=== PATIENT | male | born 1930 | race Caucasian/White ===

== ENCOUNTER 2018-11-04 08:38 | Inpatient (IN) | payer OTHER ==
[~2018-11-04] VITALS: Ht 167.6 cm; Wt 64.4 kg
--- NOTE | 2018-11-04 08:43 | NUR ---
SEEN AND EXAMINED BY DR. CONDE
--- NOTE | 2018-11-04 08:45 | NUR ---
PT [id number] FOR, FEVER AND SOB/ 02 DESATURATION, PT IS AAOX1, NOTED RESPIRATORY DISTRESS, HOOKED TO MONITOR, KEPT RESTED AND COMFORTABLE, WILL COTNINUE TO MONITOR.
[2018-11-04] MEDS ORDERED: ALBUTEROL FS 2.5 MG/3 ML VIAL.NEB ONE (08:48)
--- NOTE | 2018-11-04 08:50 | NUR ---
RT AT BEDSIDE FOR BREATHING TREATMENT.
[2018-11-04] MEDS ORDERED: PIPERACILLIN /TAZOBACTAM 3.375 G in IV D5W 50 ML IV ONE (09:00)
[2018-11-04] MEDS ORDERED: IV NS 0.9% 500 ML BAG IV ONE (09:00)
[2018-11-04] MEDS ORDERED: VANCOMYCIN 1 GM in IV D5W 250 ML IV ONE (09:00)
[2018-11-04] MEDS ORDERED: ALBUTEROL FS 2.5 MG/3 ML VIAL.NEB NEB ONE (09:00)
--- NOTE | 2018-11-04 09:00 | NUR ---
IV LINE ESTABLISHED, BLOOD DRAWNED AND SENT TO LAB.
[2018-11-04 09:03] LABS: BASOPHILS # (AUTO) 0.2 /CMM (0.0-0.2); BASOPHILS % (AUTO) 0.9 % (0.0-2.0); HEMATOCRIT 38 % (39-51); HEMOGLOBIN 12.4 g/dL (13.5-17.5); LYMPHOCYTES # (AUTO) 0.6 /CMM (0.8-4.8); LYMPHOCYTES % (AUTO) 2.3 % (20.0-44.0); MEAN CORPUSCULAR HGB CONC 33 g/dl (31.0-36.0); MEAN CORPUSCULAR VOLUME 87 fL (80-96); MONOCYTES # (AUTO) 1.1 /CMM (0.1-1.30); MONOCYTES % (AUTO) 4.6 % (2.0-12.0); NEUTROPHILS # (AUTO) 22.9 /CMM (1.8-8.9); NEUTROPHILS % (AUTO) 92.2 % (43.0-81.0); PLATELET COUNT (AUTO) 366 /CMM (150-450); RED BLOOD CELL COUNT(AUTO) 4.33 MIL/uL (4.5-6.0); WHITE BLOOD COUNT (AUTO) 24.8 K/uL (4.3-11.0)
[2018-11-04 09:10] LABS: CALCIUM, SERUM 9.3 mg/dL (8.5-10.1); CARBON DIOXIDE 27 mmol/L (21-32); CHLORIDE 98 mmol/L (98-107); CREATININE 1.9 mg/dL (0.6-1.3); GLUCOSE 155 mg/dL (74-106); POTASSIUM 4.4 mmol/L (3.5-5.1); SODIUM SERUM 140 mmol/L (136-145); UREA NITROGEN, BLOOD 40 mg/dL (7-18)
--- NOTE | 2018-11-04 09:12 | NUR ---
SHOW DOG TRAINER AT BEDSIDE FOR XRAY.
[2018-11-04 09:22] LABS: ALANINE AMINOTRANSFERASE 33 U/L (12-78); ALBUMIN 3.3 g/dL (3.4-5.0); ALKALINE PHOSPHATASE 235 U/L (46-116); ASPARTATE AMINOTRANSFERASE 34 U/L (15-37); B-TYPE NATRIURETIC PEPTIDE 257 PG/ML (0-125); BILIRUBIN,DIRECT 0.1 mg/dL (0.0-0.2); BILIRUBIN,TOTAL 0.6 mg/dL (0.2-1.0); TOTAL PROTEIN, SERUM 8.4 g/dL (6.4-8.2)
[2018-11-04] MEDS ORDERED: IV NS 0.9% 1,000 ML BAG IV ONE (09:30)
[2018-11-04] MEDS ORDERED: ACETAMINOPHEN 650 MG/SUPP.RECT RC ONE ×2 (09:30→09:36)
[2018-11-04 09:37] LABS: APPEARANCE,URINE Cloudy (CLEAR); BILIRUBIN,URINE Negative (NEGATIVE); BLOOD, URINE Negative Ery/uL (NEGATIVE); COLOR,URINE Yellow (YELLOW); KETONES,URINE Negative (NEGATIVE); LEUKOCYTE ESTERASE ,URINE Negative (NEGATIVE); NITRITE, URINE Negative (NEGATIVE); PROTEIN,URINE 100 mg/dl (NEGATIVE); UGLUCOSE Negative (NEGATIVE); UROBILINOGEN,URINE 0.2 EU/dL (0.2)
[2018-11-04 09:47] LABS: BACTERIA,URINE Rare /HPF (None Seen); RBC,URINE 0-2 /HPF (0-2); SQUAMOUS EPITHELIAL CELL,UR Few /HPF (None Seen); URINE AMORPHOUS URATE Moderate /HPF (None Seen)
--- NOTE | 2018-11-04 09:56 | NUR ---
PT IS WHEELED TO CT SCAN VIA [facility].
--- NOTE | 2018-11-04 10:05 | NUR ---
RAPID INFULENZA OBTAINED AND SENT TO LAB.
--- NOTE | 2018-11-04 10:55 | NUR ---
PANEL ON-CALL PAGED
[2018-11-04] MEDS ORDERED: MINERAL OIL 133 ML (PYXIS) 1 EA ENEMA RC ONE ×2 (11:00→11:01)
--- NOTE | 2018-11-04 11:10 | NUR ---
CALLED [facility] ITS LUIS
[2018-11-04] MEDS ORDERED: MEMA10TA GT (11:11)
[2018-11-04] MEDS ORDERED: ATOR40TA GT (11:11)
[2018-11-04] MEDS ORDERED: DONE5TAB7 GT (11:11)
[2018-11-04] MEDS ORDERED: ACET-73 PO (11:11)
[2018-11-04] MEDS ORDERED: NA P133E RC (11:11)
[2018-11-04] MEDS ORDERED: BISA10SU61 RC (11:11)
[2018-11-04] MEDS ORDERED: LEVE500T9 GT (11:11)
[2018-11-04] MEDS ORDERED: MAGN400O6 GT (11:11)
[2018-11-04] MEDS ORDERED: HYDR-4077 GT (11:11)
[2018-11-04] MEDS ORDERED: LACT-96 GT (11:11)
[2018-11-04] MEDS ORDERED: TYL2T GT (11:11)
[2018-11-04] MEDS ORDERED: FINA5TAB3 GT (11:11)
[2018-11-04 12:00] VITALS: BP 118/66
--- NOTE | 2018-11-04 12:00 | NUR ---
REPORT GIVEN TO BHASKAR HARDIN FOR CJ.
[2018-11-04 13:00] VITALS: BP 118/83
[2018-11-04] MEDS ORDERED: Z GUARD REMEDY 2 OZ OINT TP PRN (14:00)
[2018-11-04] MEDS ORDERED: ONDANSETRON HCL/PF 4 MG/2 ML VIAL IVP PRN (14:00)
[2018-11-04] MEDS ORDERED: MAGNESIUM HYDROXIDE 30 ML UDC PO PRN (14:00)
[2018-11-04] MEDS ORDERED: NA PHOS,M-B/NA PHOS,DI-BA 1 EA ENEMA RC PRN (14:00)
[2018-11-04] MEDS ORDERED: BISACODYL SUPP (10 MG) 10 MG/SUPP.RECT SUPP.RECT RC PRN (14:00)
[2018-11-04] MEDS ORDERED: MAG HYDROX/AL HYDROX/SIMETH 30 ML UDC PO PRN (14:00)
[2018-11-04] MEDS ORDERED: ACETAMINOPHEN 325 MG TABLET PO PRN (14:00)
[2018-11-04] MEDS ORDERED: ACETAMINOPHEN 650 MG/SUPP.RECT RC PRN (14:00)
[2018-11-04] MEDS ORDERED: FEE PK DOSING 1 MIN EA MC ONE (14:19)
[2018-11-04] MEDS ORDERED: VANCOMYCIN 0.75 GM in IV D5W 250 ML IV SCH (15:00)
[2018-11-04] MEDS ORDERED: JEVITY 1.2 CAL 1,000 ML BOTTLE GT PRN (15:00)
--- NOTE | 2018-11-04 15:00 | NUR ---
RN NOTE GI FACILITIES MAINTENANCE MANAGER CALLED ER TO OBTAIN AMOUNT OF BOWEL MOVEMENT AFTER ENEMA WAS GIVEN. RESIDENCY DIRECTOR CONFIRMED X2 SMALL LYNDON COLORED STOOLS ABOUT THE SIZE OF A FIST WAS EXPELLED. RN IN MORE CHANGED PATIENT, HAD X1 BOWEL MOVEMENT ABOUT 100CC SMALL LYNDON COLORED SOFT. NO RESIDUAL NOTED. G TUBE FLUSHING WELL. OK TO START TUBE FEEDING AND RN WILL START THIS PM.
[2018-11-04] MEDS: IV NS 0.9% 1,000 ML IV PRN (15:06)
--- NOTE | 2018-11-04 15:27 | NUR ---
RN GI ASSESSMENT EXTRA LARGE BOWEL MOVEMENT X2 APPROX 200CC OR 2 LARGE FISTS, BROWN SOFT BUT NOT LOOSE.
[2018-11-04 16:00] VITALS: BP 105/72
--- NOTE | 2018-11-04 16:00 | NUR ---
RN NOTE PATIENT TRANSFERED FROM ER TODAY, LEFT UPPER CHEST RAISED AREA, IS NOT OPEN WOUND. MD AWARE, ER NURSE ENDORSE MD AWARE. NO NEW ORDERS, ATB THERAPY ENDORSE TO NIGHT NURSE.
[2018-11-04 17:00] VITALS: BP 120/78
[2018-11-04] MEDS: ZOSYN IVPB 2.25 G in IV D5W 50ml IV SCH ×2 (17:00→21:24)
[2018-11-04] MEDS: MEMANTINE HCL 5 MG TABLET GT SCH (17:15)
--- NOTE | 2018-11-04 18:38 | NUR ---
RN CLOSING NOTE PATIENT IN BED CONFUSED, IV PATENT AND INTACT, BED IN LOW POSITION. PATIENT HAD MULTIPLE BOWEL MOVEMENTS TODAY KEPT CLEAN AND DRY. ABDOMEN IS NON DISTENDED AND SOFT. CALLED KITCHEN X2 TO REQUEST JEVITY 1.2 FEEDING WITH NO RESOLVE. WILL ENDORSE TO DEPUTY DIRECTOR. IV ATB ADMINISTERD GTUBE FLUSHING WELL.
[2018-11-04] MEDS: JEVITY 1.2 CAL 1,000 ML BOTTLE GT PRN (19:21)
--- NOTE | 2018-11-04 20:51 | NUR ---
RN MORE INITIAL NOTE RECEIVED PT IN BED AWAKE, CONFUSED, BB, RA WELL TOLERATED, LAC#18G, NS@75ML/HR RUNNING WELL TOLERATED, GT FEEDING JEVITY 1.2@30CC/HR GOAL 50ML/HR, WILL ADVANCE TOLERATED, HOB ELEVATED FOR ASPIRATION PRECAUTION,SAFETY MEASURES IN PLACE, CLEAN AND DRY, WILL CONT' TO MONITOR.
[2018-11-04 21:00] VITALS: BP 109/51
[2018-11-04] MEDS: LEVETIRACETAM SOL (5 ML) 100 MG/ML UDC GT SCH (21:12)
[2018-11-04] MEDS: DONEPEZIL 5 MG TABLET GT SCH (21:12)
[2018-11-04] MEDS: ATORVASTATIN 40 MG TABLET GT SCH (21:12)
[2018-11-05 01:00] VITALS: BP 117/72
[2018-11-05 04:00] VITALS: BP 119/67
[2018-11-05] MEDS: ZOSYN IVPB 2.25 G in IV D5W 50ml IV SCH ×4 (04:37→21:46)
[2018-11-05 05:00] VITALS: BP 119/67
[2018-11-05 06:29] LABS: BASOPHILS # (AUTO) 0.1 /CMM (0.0-0.2); BASOPHILS % (AUTO) 0.4 % (0.0-2.0); EOSINOPHILS % (AUTO) 2.2 % (0.0-6.0); HEMATOCRIT 29 % (39-51); HEMOGLOBIN 9.5 g/dL (13.5-17.5); LYMPHOCYTES # (AUTO) 1.4 /CMM (0.8-4.8); LYMPHOCYTES % (AUTO) 6.9 % (20.0-44.0); MEAN CORPUSCULAR HGB CONC 33 g/dl (31.0-36.0); MEAN CORPUSCULAR VOLUME 86 fL (80-96); MONOCYTES # (AUTO) 1.2 /CMM (0.1-1.30); MONOCYTES % (AUTO) 5.8 % (2.0-12.0); NEUTROPHILS # (AUTO) 17.1 /CMM (1.8-8.9); NEUTROPHILS % (AUTO) 84.7 % (43.0-81.0); PLATELET COUNT (AUTO) 252 /CMM (150-450); RED BLOOD CELL COUNT(AUTO) 3.34 MIL/uL (4.5-6.0); WHITE BLOOD COUNT (AUTO) 20.2 K/uL (4.3-11.0)
[2018-11-05 06:54] LABS: ALANINE AMINOTRANSFERASE 23 U/L (12-78); ALBUMIN 2.5 g/dL (3.4-5.0); ALKALINE PHOSPHATASE 142 U/L (46-116); ASPARTATE AMINOTRANSFERASE 28 U/L (15-37); BILIRUBIN,TOTAL 0.6 mg/dL (0.2-1.0); CARBON DIOXIDE 29 mmol/L (21-32); CHLORIDE 103 mmol/L (98-107); CREATININE 1.4 mg/dL (0.6-1.3); GLUCOSE 103 mg/dL (74-106); MAGNESIUM 1.9 mg/dL (1.8-2.4); PHOSPHORUS 1.9 mg/dL (2.5-4.9); POTASSIUM 3.2 mmol/L (3.5-5.1); SODIUM SERUM 140 mmol/L (136-145); TOTAL PROTEIN, SERUM 6.4 g/dL (6.4-8.2); UREA NITROGEN, BLOOD 37 mg/dL (7-18)
--- NOTE | 2018-11-05 06:55 | NUR ---
RN MORE CLOSING NOTE ENDORSED PT IN BED AWAKE, CONFUSED, BB, RA WELL TOLERATED, LAC#18G, NS@75ML/HR RUNNING WELL TOLERATED, GT FEEDING JEVITY 1.2@30CC/HR GOAL 50ML/HR, WILL ADVANCE TOLERATED, HOB ELEVATED FOR ASPIRATION PRECAUTION,SAFETY MEASURES IN PLACE, CLEAN AND DRY, WILL CONT' TO MONITOR.
[2018-11-05 06:59] LABS: CHOLESTEROL 66 mg/dL (<200); HDL CHOLESTEROL 35 mg/dL (40-60); LDL 27 mg/dL (0-99); THYROID STIMULATING HORMONE 3.821 uIU/mL (0.358-3.74); TRIGLYCERIDES 64 mg/dL (30-150)
--- NOTE | 2018-11-05 07:40 | NUR ---
RN INITIAL NOTE RECEIVED REPORT AT BEDSIDE. PT IN BED, CONFUSED, BB, AROUSAL TO TACTILE STIMULI. RA WELL TOLERATED SATURATING 99%. SR. LAC#18G, NS@75ML/HR RUNNING. GT FEEDING JEVITY 1.2@30CC/HR. HOB ELEVATED FOR ASPIRATION PRECAUTION,SAFETY MEASURES IN PLACE, BED AT LOWEST AND LOCKED POSITION, BED ALARM ON. CALL LIGHT WITHIN REACH. WILL CONTINUE TO MONITOR CLOSELY.
[2018-11-05 08:00] VITALS: BP 112/52
[2018-11-05] MEDS: FINASTERIDE (5 MG) 5 MG TABLET GT SCH (09:11)
[2018-11-05] MEDS: LEVETIRACETAM SOL (5 ML) 100 MG/ML UDC GT SCH ×2 (09:12→21:46)
[2018-11-05] MEDS: hydrALAZINE HCL 50 MG TABLET GT SCH (09:12)
[2018-11-05] MEDS: MEMANTINE HCL 5 MG TABLET GT SCH ×2 (09:16→16:21)
[2018-11-05] MEDS: IV NS 0.9% 1,000 ML IV PRN (09:39)
[2018-11-05] MEDS ORDERED: VANCOMYCIN 0.75 GM in IV D5W 250 ML IV SCH (10:00)
[2018-11-05] MEDS: POTASSIUM CHLORIDE 20 MEQ POWDER PACKET GT SCH ×2 (12:12→12:58)
--- NOTE | 2018-11-05 15:11 | NUR ---
RN NOTE AN SMITH AT BEDSIDE, AWARE ABOUT THE PATIENT'S RIGHT UPPER CHEST WALL CYST/BULGING. AWARE THAT PT HAD 1 BM, FORMED AND GREEN STOOL. PER LUIS, HE WILL ORDER ABD XR, REPEAT LACTIC ACID, TSH AND STOOL OB SINCE PATIENT'S HGB DROPPED FROM 12.4 TO 9.5.
[2018-11-05] MEDS ORDERED: NEUTRA PHOS 1 POWD.PACKET GT ONE (15:30)
[2018-11-05 16:00] VITALS: BP 125/55
[2018-11-05] MEDS: LACTOBACILLUS RHAMNOSUS GG 1 EACH CAP.SPRINK PEG SCH (16:21)
--- NOTE | 2018-11-05 18:59 | NUR ---
RN CLOSING NOTES PATIENT IN BED ASLEEP, BUT EASILY AROUSABLE. VERY CONFUSED. PT EVAL DONE TODAY, PATIENT IS BB. ON ROOM AIR. HAD 1 BM. TOOK PICTURES OF BLE ABRASIONS, IN CHART. WOUND CONSULT ORDERED. JEVITY AT 40ML/HR. GOAL IS 50. NS RUNNING AT 75ML/HR. K REPLACED AND PHOS. STOOL OB PENDING. WILL ENDORSE TO NOC SHIFT FOR CJ
--- NOTE | 2018-11-05 19:53 | NUR ---
RN OPENING NOTES RECEIVED REPORT FROM DANAY MURO. PATIENT A/A/O X1 TO NAME W/ CONFUSION. BREATHING EVEN & UNLABORED, TOLERATING ROOM AIR. NO S/S OF RESPIRATORY DISTRESS. RADIAL PULSES PRESENT. RIGHT AC OV #18 INTACT & PATENT W/ DRESSING CDI & IVF NS INFUSING WELL @ 75 ML/HR. G-TUBE IN PLACE & FLUSHING WELL W/ GTF JEVITY RUNNING @ 40 ML/HR. NO RESIDUAL NOTED @ THIS TIME. NO S/S OF PAIN OR DISCOMFORT @ THIS TIME. SAFETY MEASURES IN PLACE W/ SIDE RAILS UP & BED ALARM ON. HOB ELEVATED FOR ASPIRATION PRECAUTIONS. WILL CONTINUE TO MONITOR.
[2018-11-05 20:00] VITALS: BP 126/45
[2018-11-05] MEDS: ATORVASTATIN 40 MG TABLET GT SCH (21:45)
[2018-11-05] MEDS: DONEPEZIL 5 MG TABLET GT SCH (21:45)
[2018-11-06 04:00] VITALS: BP 117/63
[2018-11-06] MEDS: JEVITY 1.2 CAL 1,000 ML BOTTLE GT PRN (04:04)
[2018-11-06] MEDS: IV NS 0.9% 1,000 ML IV PRN ×2 (04:04→22:34)
[2018-11-06] MEDS: ZOSYN IVPB 2.25 G in IV D5W 50ml IV SCH ×3 (04:12→15:35)
[2018-11-06] MEDS: VANCOMYCIN 0.75 GM in IV D5W 250 ML IV SCH ×2 (05:43→22:35)
[2018-11-06 07:19] LABS: BASOPHILS % (AUTO) 0.4 % (0.0-2.0); EOSINOPHILS % (AUTO) 6.6 % (0.0-6.0); HEMATOCRIT 27 % (39-51); HEMOGLOBIN 9.2 g/dL (13.5-17.5); LYMPHOCYTES # (AUTO) 1.3 /CMM (0.8-4.8); LYMPHOCYTES % (AUTO) 11.1 % (20.0-44.0); MEAN CORPUSCULAR HGB CONC 34 g/dl (31.0-36.0); MEAN CORPUSCULAR VOLUME 85 fL (80-96); MONOCYTES # (AUTO) 0.8 /CMM (0.1-1.30); MONOCYTES % (AUTO) 6.5 % (2.0-12.0); NEUTROPHILS # (AUTO) 8.9 /CMM (1.8-8.9); NEUTROPHILS % (AUTO) 75.4 % (43.0-81.0); PLATELET COUNT (AUTO) 227 /CMM (150-450); RED BLOOD CELL COUNT(AUTO) 3.16 MIL/uL (4.5-6.0); WHITE BLOOD COUNT (AUTO) 11.8 K/uL (4.3-11.0)
--- NOTE | 2018-11-06 07:20 | NUR ---
RN INITIAL NOTES PATIENT IN BED, ASLEEP BUT EASILY AROUSABLE TO TOUCH. PATIENT VERY CONFUSED, WHEN ASKED IF HIS NAME IS FELTON, PATIENT YELLED NO. ON ROOM AIR, SATING WELL. HAS A RAC #18 WITH NS AT 75ML/HR. ON GTF JEVITY AT 40 ML/HR. GOAL IS 50. OB STOOL COLLECTED PER NOC SHIFT RN. NO COMPLAINS OF ANY PAIN NOR SOB. BED LOCKED AND IN LOWEST POSITION. CALL LIGHT WITHIN REACH. WILL CONT TO MONITOR
[2018-11-06 07:31] LABS: OCCULT BLOOD STOOL NEGATIVE (NEGATIVE)
[2018-11-06 07:50] LABS: ALANINE AMINOTRANSFERASE 25 U/L (12-78); ALBUMIN 2.3 g/dL (3.4-5.0); ALKALINE PHOSPHATASE 137 U/L (46-116); ASPARTATE AMINOTRANSFERASE 30 U/L (15-37); BILIRUBIN,TOTAL 0.6 mg/dL (0.2-1.0); CALCIUM, SERUM 7.8 mg/dL (8.5-10.1); CARBON DIOXIDE 22 mmol/L (21-32); CHLORIDE 104 mmol/L (98-107); CREATININE 1.2 mg/dL (0.6-1.3); GLUCOSE 144 mg/dL (74-106); MAGNESIUM 1.8 mg/dL (1.8-2.4); PHOSPHORUS 1.7 mg/dL (2.5-4.9); POTASSIUM 3.3 mmol/L (3.5-5.1); SODIUM SERUM 137 mmol/L (136-145); UREA NITROGEN, BLOOD 27 mg/dL (7-18)
[2018-11-06 08:00] VITALS: BP 128/62
[2018-11-06] MEDS: LACTOBACILLUS RHAMNOSUS GG 1 EACH CAP.SPRINK PEG SCH ×2 (08:12→16:09)
[2018-11-06] MEDS: MEMANTINE HCL 5 MG TABLET GT SCH ×2 (08:12→16:08)
[2018-11-06] MEDS: FINASTERIDE (5 MG) 5 MG TABLET GT SCH (08:12)
[2018-11-06] MEDS: LEVETIRACETAM SOL (5 ML) 100 MG/ML UDC GT SCH ×2 (08:12→22:35)
[2018-11-06] MEDS: hydrALAZINE HCL 50 MG TABLET GT SCH (08:12)
[2018-11-06] MEDS ORDERED: POTASSIUM CHLORIDE 20 MEQ TAB.PRT.SR PO SCH (11:00)
--- NOTE | 2018-11-06 13:04 | NUR ---
RN NOTES MISSED A DOSE OF K DUR 20 MEQ. REORDERED MEDICATION AGAIN
[2018-11-06] MEDS ORDERED: POTASSIUM CHLORIDE 20 MEQ TAB.PRT.SR PO ONE (13:30)
[2018-11-06] MEDS ORDERED: NEUTRA PHOS 1 POWD.PACKET NG ONE (15:30)
[2018-11-06 16:00] VITALS: BP 148/77
--- NOTE | 2018-11-06 16:00 | NUR ---
RN NOTES PATIENT COUGHING AND WHEEZING. CALLED RT FOR PRN BREATHING TX
[2018-11-06] MEDS: ALBUTEROL FS 2.5 MG/3 ML VIAL.NEB NEB PRN (16:06)
[2018-11-06] MEDS: IPRATROPIUM NEB FS 0.5 MG/2.5 ML AMPUL.NEB NEB PRN (16:06)
--- NOTE | 2018-11-06 16:34 | NUR ---
RN NOTE RECHECKED PATIENT'S BP, WAS 170/76. NEW BP 148/77.
--- NOTE | 2018-11-06 18:38 | NUR ---
RN CLOSING NOTES PATIENT IN BED, AWAKE AND VERY CONFUSED. ON 2L NC. PATIENT RECEIVED BREATHING TX DUE TO WHEEZING AND SOB. HAS 2 BM, NEGATIVE FOR OB. JEVITY AT 50ML/HR. K AND PHOS REPLACED. ON IVF 75ML/HR ON RIGHT AC#18. BED LOCKED AND IN LOWEST POSITION. CALL LIGHT WITHIN REACH. WILL ENDORSE TO NOC SHIFT FOR CJ
[2018-11-06] MEDS: ATORVASTATIN 40 MG TABLET GT SCH (22:35)
[2018-11-06] MEDS: DONEPEZIL 5 MG TABLET GT SCH (22:35)
[2018-11-07] MEDS: ZOSYN IVPB 2.25 G in IV D5W 50ml IV SCH ×5 (00:09→22:13)
[2018-11-07 00:48] VITALS: BP 132/64
--- NOTE | 2018-11-07 02:28 | NUR ---
Patient IV Fluid TKO due patient episode of wheezing. Will continue to monitor.
[2018-11-07 04:00] VITALS: BP 135/60
--- NOTE | 2018-11-07 07:15 | NUR ---
RN OPENING NOTES PATIENT IN BED, ASLEEP BUT EASILY AROUSABLE TO TOUCH. A/OX1, CONFUSED. ON ROOM AIR, SATING WELL. IV ACCESS INTACT AND PATENT. ON GTF JEVITY AT 40ML/HR, GOAL IS 50. NOT IN ANY FORM OF DISTRESS, NO SOB, NO S/S OF PAIN OR DISCOMFORT. KEPT PATIENT SAFE AND COMFORTABLE. BED IN LOCKED/LOWEST POSITION. CALL LIGHT WITHIN REACH. WILL CONT TO MONITOR ACCORDINGLY
[2018-11-07 07:32] LABS: BASOPHILS % (AUTO) 0.5 % (0.0-2.0); EOSINOPHILS % (AUTO) 5.1 % (0.0-6.0); HEMATOCRIT 29 % (39-51); HEMOGLOBIN 9.9 g/dL (13.5-17.5); LYMPHOCYTES # (AUTO) 1.2 /CMM (0.8-4.8); LYMPHOCYTES % (AUTO) 12.7 % (20.0-44.0); MEAN CORPUSCULAR HGB CONC 34 g/dl (31.0-36.0); MEAN CORPUSCULAR VOLUME 85 fL (80-96); MONOCYTES # (AUTO) 0.8 /CMM (0.1-1.30); MONOCYTES % (AUTO) 8.3 % (2.0-12.0); NEUTROPHILS # (AUTO) 6.8 /CMM (1.8-8.9); NEUTROPHILS % (AUTO) 73.4 % (43.0-81.0); PLATELET COUNT (AUTO) 249 /CMM (150-450); RED BLOOD CELL COUNT(AUTO) 3.39 MIL/uL (4.5-6.0); WHITE BLOOD COUNT (AUTO) 9.3 K/uL (4.3-11.0)
[2018-11-07 07:38] LABS: ALANINE AMINOTRANSFERASE 28 U/L (12-78); ALBUMIN 2.4 g/dL (3.4-5.0); ALKALINE PHOSPHATASE 137 U/L (46-116); ASPARTATE AMINOTRANSFERASE 29 U/L (15-37); BILIRUBIN,TOTAL 0.5 mg/dL (0.2-1.0); CHLORIDE 104 mmol/L (98-107); CREATININE 1.1 mg/dL (0.6-1.3); GLUCOSE 93 mg/dL (74-106); POTASSIUM 3.4 mmol/L (3.5-5.1); SODIUM SERUM 138 mmol/L (136-145); TOTAL PROTEIN, SERUM 6.6 g/dL (6.4-8.2); UREA NITROGEN, BLOOD 18 mg/dL (7-18)
[2018-11-07 07:45] LABS: FERRITIN 79 ng/mL (8-388)
[2018-11-07 07:50] LABS: CARBON DIOXIDE 22 mmol/L (21-32)
[2018-11-07 08:00] VITALS: BP 130/72
[2018-11-07 09:05] LABS: IRON, SERUM 29 ug/dl (50-175); TOTAL IRON BINDING CAPACITY 189 ug/dl (250-450)
[2018-11-07] MEDS: LACTOBACILLUS RHAMNOSUS GG 1 EACH CAP.SPRINK PEG SCH ×2 (09:35→16:18)
[2018-11-07] MEDS: FINASTERIDE (5 MG) 5 MG TABLET GT SCH (09:36)
[2018-11-07] MEDS: hydrALAZINE HCL 50 MG TABLET GT SCH (09:36)
[2018-11-07] MEDS: MEMANTINE HCL 5 MG TABLET GT SCH ×2 (09:36→16:18)
[2018-11-07] MEDS: LEVETIRACETAM SOL (5 ML) 100 MG/ML UDC GT SCH ×2 (09:37→22:12)
[2018-11-07] MEDS ORDERED: POTASSIUM CHLORIDE 20 MEQ POWDER PACKET NG SCH (10:00)
[2018-11-07 16:00] VITALS: BP 128/76
[2018-11-07] MEDS: VANCOMYCIN 1 GM in IV D5W 250 ML IV SCH (17:07)
[2018-11-07] MEDS: JEVITY 1.2 CAL 1,000 ML BOTTLE GT PRN (17:13)
--- NOTE | 2018-11-07 18:20 | NUR ---
RN NOTES: HOLD IVF NOTIFIED LUIS GODINEZ NP REGARDING PATIENT WHEEZES. PER BLAYNE SMITH, HOLD IVF FOR NOW. CXR ORDERED
--- NOTE | 2018-11-07 18:28 | NUR ---
RN CLOSING NOTES PATIENT IN STABLE CONDITION. ALL NEEDS ATTENDED AND PROVIDED. ALL DUE MEDICATIONS GIVEN ORDERED. KEPT PATIENT SAFE AND COMFORTABLE. TURNED AND REPOSITIONED Q2HRS NEEDED. BED IN LOW/LOCKED POSITION, SIDERAILS UPX2, CALL LIGHT IN REACH. WILL ENDORSED TO NIGHT RN FOR CJ.
--- NOTE | 2018-11-07 19:15 | NUR ---
MS/RN OPENING NOTES PT RECEIVED WITH EYES CLOSED. NON VERBAL BUT RESPONSIVE TO TACTILE STIMULI. ON 2LPM O2 VIA NC, BREATHING EVEN AND UNLABORED. NO S/S OF SOB OR PAIN AT THIS TIME. IV TO RAC PATENT AND INTACT. GT FEEDING RUNNING AT 40ML/HR. BED IN LOW/LOCKED POSITION WITH CALL LIGHT IN REACH. BILAT. UPPER SIDE RAILS IN PLACE. HOB ELEVATED. WILL CONTINUE TO MONITOR
[2018-11-07 20:00] VITALS: BP 122/68
[2018-11-07 20:06] VITALS: BP 122/68
[2018-11-07] MEDS: MUPIROCIN OINT 2% 22 GM TUBE SCH (22:12)
[2018-11-07] MEDS: DONEPEZIL 5 MG TABLET GT SCH (22:13)
[2018-11-07] MEDS: ATORVASTATIN 40 MG TABLET GT SCH (22:13)
[2018-11-07] MEDS: IPRATROPIUM NEB FS 0.5 MG/2.5 ML AMPUL.NEB NEB PRN (23:00)
[2018-11-07] MEDS: ALBUTEROL FS 2.5 MG/3 ML VIAL.NEB NEB PRN (23:00)
--- NOTE | 2018-11-07 23:31 | NUR ---
TELE/RN NOTES PT IV LEAKING. INSERTED NEW IV TO RFA #22 PRIOR TO ZOSYN ADMINISTRATION.
[2018-11-08] VITALS (7 sets, daily range): BP systolic 139–157; BP diastolic 68–76
[2018-11-08] MEDS: ZOSYN IVPB 2.25 G in IV D5W 50ml IV SCH ×4 (04:25→22:54)
--- NOTE | 2018-11-08 06:35 | NUR ---
TELE TD RN CLOSING NOTES PT ASLEEP, RESPONSIVE TO TACTILE STIMULI. NON VERBAL. OPENS EYES SPONTANEOUSLY. ON 2LPM O2 VIA NC, BREATHING EVEN AND UNLABORED. NO S/S OF SOB OR PAIN AT THIS TIME. ON TELE MONITOR SHOWING SR 83. IV TO RFA PATENT AND INTACT. GT FEEDING INCREASED TO 50CC/HR, NO RESIDUALS NOTED AT THIS TIME. TURNED/REPOSITIONED Q2H, HEELS OFFLOADED. NO SIGNIFICANT CHANGES OVERNIGHT. BED IN LOW/LOCKED POSITION WITH CALL LIGHT IN REACH. HOB ELEVATED AND BILAT. UPPER SIDE RAILS IN PLACE. WILL ENDORSE TO DAY SHIFT RN CJ.
--- NOTE | 2018-11-08 07:35 | NUR ---
RN OPENING NOTES RECEIVED PATIENT IN BED, AOX1 AND OPENS EYES TO SIMULI. HE IS ON 2L OF O2 VIA NC AND DOES NOT SHOW SIGNS OF RESP. DISTRESS OR SOB. HE HAS A 22G SALINE LOCK ON RFA, PATENT. SAFETY MEASURES HAVE BEEN IMPLEMENTED, CALL LIGHT WITHIN REACH, BED IN LOWEST AND LOCKED POSITION, SIDE RAILS UP X2, HOB ELEVATED. WILL CONTINUE TO MONITOR
[2018-11-08 07:41] LABS: CALCIUM, SERUM 8.3 mg/dL (8.5-10.1); CARBON DIOXIDE 24 mmol/L (21-32); CHLORIDE 104 mmol/L (98-107); CREATININE 1.2 mg/dL (0.6-1.3); GLUCOSE 104 mg/dL (74-106); PHOSPHORUS 2.7 mg/dL (2.5-4.9); POTASSIUM 3.8 mmol/L (3.5-5.1); SODIUM SERUM 139 mmol/L (136-145); UREA NITROGEN, BLOOD 17 mg/dL (7-18)
[2018-11-08] MEDS: LEVETIRACETAM SOL (5 ML) 100 MG/ML UDC GT SCH ×2 (08:44→22:03)
[2018-11-08] MEDS: MEMANTINE HCL 5 MG TABLET GT SCH ×2 (08:44→16:57)
[2018-11-08] MEDS: FINASTERIDE (5 MG) 5 MG TABLET GT SCH (08:44)
[2018-11-08] MEDS: LACTOBACILLUS RHAMNOSUS GG 1 EACH CAP.SPRINK PEG SCH ×2 (08:44→16:57)
[2018-11-08] MEDS: hydrALAZINE HCL 50 MG TABLET GT SCH (08:46)
[2018-11-08] MEDS: MUPIROCIN OINT 2% 22 GM TUBE SCH ×2 (08:47→22:03)
[2018-11-08 08:59] LABS: BASOPHILS % (AUTO) 0.6 % (0.0-2.0); EOSINOPHILS % (AUTO) 4.2 % (0.0-6.0); HEMATOCRIT 28 % (39-51); HEMOGLOBIN 9.8 g/dL (13.5-17.5); LYMPHOCYTES # (AUTO) 1.3 /CMM (0.8-4.8); LYMPHOCYTES % (AUTO) 14.6 % (20.0-44.0); MEAN CORPUSCULAR HGB CONC 34 g/dl (31.0-36.0); MEAN CORPUSCULAR VOLUME 85 fL (80-96); MONOCYTES # (AUTO) 0.7 /CMM (0.1-1.30); MONOCYTES % (AUTO) 8.5 % (2.0-12.0); NEUTROPHILS # (AUTO) 6.2 /CMM (1.8-8.9); NEUTROPHILS % (AUTO) 72.1 % (43.0-81.0); PLATELET COUNT (AUTO) 273 /CMM (150-450); RED BLOOD CELL COUNT(AUTO) 3.34 MIL/uL (4.5-6.0); WHITE BLOOD COUNT (AUTO) 8.7 K/uL (4.3-11.0)
--- NOTE | 2018-11-08 09:53 | NUR ---
WOUND CARE CONSULT: PT PRESENTS WITH RAISED AREA TO RT CHEST (NO REDNESS), MULTIPLE SCARS ON LOWER LEGS AND SCARRING TO SACRUM, SOME RED/BROWN DRAINAGE AROUND G TUBE SITE WITH HYPERGRANULAR TISSUE, PRESENT ON ADMISSION. PT IS IMMOBILE AND INCONTINENT. RECOMMENDATIONS MADE FOR SKIN PROTECTION. DISCUSSED WITH NURSING STAFF. DEFER TO MD FOR RAISED AREA TO RT CHEST AND G TUBE SITE. PT ON ROSHAN ISOFLEX LOW AIRLOSS BED. CURRENT SKYLER SCORE IS 12. WILL SEE PRN. IN AGREEMENT WITH PLAN OF CARE. Addendum: 11/08/18 at 0956 by ÁNGEL JONES WNDNU Amended: Links added.
--- NOTE | 2018-11-08 10:10 | NUR ---
STEWARD/STEWARDESS THIRD NOTES CONDOM CATHETER IN PLACE. DR. LUIS GODINEZ AWARE.
[2018-11-08] MEDS: VANCOMYCIN 1 GM in IV D5W 250 ML IV SCH (11:00)
[2018-11-08] MEDS: JEVITY 1.2 CAL 1,000 ML BOTTLE GT PRN (17:03)
[2018-11-08] MEDS ORDERED: PIPE2.257 IV (17:38)
[2018-11-08] MEDS ORDERED: RXVAN XX (17:38)
[2018-11-08] MEDS ORDERED: MUPI22OI7 (17:39)
--- NOTE | 2018-11-08 18:38 | NUR ---
RN NOTES REPORT GIVEN TO IVORY ADMISSION RN AT FACILITY. PER HER, NO LATE ADMISSIONS DUE TO PHARMACY ISSUES. HYGIENE ASSISTANT CELINE SHIPMAN. QUAIL FARMER TIME IS 1900. Addendum: 11/08/18 at 2004 by CELINE BERRY RN ADDENDUM EARLIER REPORT GIVEN TO IVORY INCLUDES IV ANTIBIOTIC CONTINUATION FOR ZOSYN IV STARTED ON NOV 04, 2018 AND VANCOMYCIN IV STARTED ON 11/07/18 BOTH FOR 3 DAYS MORE MENTIONED ZOSYN IV GIVEN AT 11AM AND 1600 TODAY. VANCOMYCIN IV GIVEN AT 1000 TODAY.
--- NOTE | 2018-11-08 18:57 | NUR ---
RN DC NOTES PATIENT DISCHARGED TO HOME TODAY PER MD IN STABLE CONDITION. PROVIDED DC INSTRUCTIONS , MED RECON LIST AND HEALTH TEACHINGS. IV ACCESS TO RFA REMOVED. PRESSURE ON SITE APPLIED, NO BLEEDING. DRESSING IN PLACE. GT SITE INTACT. PHOTOS OF SKIN ISSUES TAKEN AND PLACED IN CHART. NO BELONGINGS. ALL PAPERWORKS SIGNED. REPORT GIVEN TO [facility] FACILITY STAFF EARLIER. PICKED UP BY 3 AM[facility]UL[facility] CREW AND WILL TRANSPORT PATIENT VIA AMBULANCE.
--- NOTE | 2018-11-08 20:22 | NUR ---
MS RN NOTES RECEIVED PT BACK ONTO UNIT VIA AMBULANCE IN STABLE CONDITION. PT AOX1 AND OPENS EYES TO STIMULI. RESPIRATIONS EVEN AND UNLABORED WITH NO S/S OF ACUTE DISTRESS OR SOB NOTED. NO S/S OF PAIN AT THIS TIME. PT ON RA SATING AT 96%. SAFETY MEASURES IN PLACE WITH BED IN LOWEST LOCKED POSITION WITH SIDE RAILS UP X2. CALL LIGHT WITHIN REACH. WILL CONTINUE TO MONITOR.
[2018-11-08] MEDS: ATORVASTATIN 40 MG TABLET GT SCH (22:03)
[2018-11-08] MEDS: DONEPEZIL 5 MG TABLET GT SCH (22:03)
--- NOTE | 2018-11-08 22:30 | NUR ---
MS RN NOTES PT RECEIVED LWRIST 22G IV INSERTION.
--- NOTE | 2018-11-09 03:50 | NUR ---
MS RN NOTES PT PULLED OUT/REMOVED IV ON LWRIST. PT IS HARD STICK. INFORMED CHARGE NURSE AND ICU NURSE FOR PLACEMENT OF NEW IV LINE. AWAITING PLACEMENT OF NEW IV SITE.
[2018-11-09 04:00] VITALS: BP 149/64
[2018-11-09] MEDS ORDERED: VANCOMYCIN 0.75 GM in IV D5W 250 ML IV SCH (04:00)
--- NOTE | 2018-11-09 07:40 | NUR ---
MS RN OPENING NOTES RECEIVED PT IN BED. AWAKE, A/O X1. PT TOLERATING RA, WITH NO ACUTE RESPIRATORY DISTRESS. PT DENIES ANY PAIN OR DISCOMFORT AT THIS TIME. PT DENIES ANY QUESTIONS OR ANY CONCERNS AT THIS MOMENT. PIV TO LEFT WRIST G22, ON GOING VANCO RUNNING AT THIS TIME FROM EXTRUSION FORMER. PER EXTRUSION FORMER PT HAD MULTIPLE TIMES TAKING OUT THE PIV SITE AND LATE FOR IV ANTIBIOTICS. PT ON GT FEEDING JEVITY 1.2 AT 50ML/HR. PT KEPT COMFORTABLE. PT'S BED IN LOWEST, LOCKED POSITION WITH SR X3. CALL LIGHT KEPT WITHIN REACH. WILL CONTINUE PLAN OF CARE.
[2018-11-09 07:45] VITALS: BP 149/64
--- NOTE | 2018-11-09 07:47 | NUR ---
MS RN NOTES PT REINSERTED WITH LWRIST #22G PATENT AND INTACT AND RUNNING MEDICATION. CALLED PHARMACY TO CHANGE TIME OF MEDICATION BECAUSE OF PT WITHOUT AN IV LINE.
--- NOTE | 2018-11-09 07:48 | NUR ---
MS RN NOTES PT ASLEEP BUT EASILY AWOKEN VERBALLY OR BY TOUCH. PT A/O X1. RESPIRATIONS EVEN AND UNLABORED WITH NO S/S OF ACUTE DISTRESS OR SOB NOTED. PT SATING 97% RA AND TOLERATING WELL. PT WITH LEFT WRIST #22G PATENT AND INTACT. NO COMPLAINTS OF PAIN AT THIS TIME. PT KEPT CLEAN, DRY, AND COMFORTABLE. SAFETY MEASURES IN PLACE WITH BED IN LOWEST LOCKED POSITION WITH SIDE RAILS UP X2. CALL LIGHT WITHIN REACH. WILL ENDORSE TO ONCOMING NURSE FOR CJ.
[2018-11-09 08:00] VITALS: BP 161/86
[2018-11-09] MEDS ORDERED: ZOSYN IVPB 2.25 G in IV D5W 50ml IV SCH (08:00)
[2018-11-09] MEDS: FINASTERIDE (5 MG) 5 MG TABLET GT SCH (09:07)
[2018-11-09] MEDS: LACTOBACILLUS RHAMNOSUS GG 1 EACH CAP.SPRINK PEG SCH (09:07)
[2018-11-09] MEDS: MEMANTINE HCL 5 MG TABLET GT SCH (09:07)
[2018-11-09] MEDS: hydrALAZINE HCL 50 MG TABLET GT SCH (09:08)
[2018-11-09] MEDS: LEVETIRACETAM SOL (5 ML) 100 MG/ML UDC GT SCH (09:08)
[2018-11-09] MEDS: MUPIROCIN OINT 2% 22 GM TUBE SCH (09:09)
[2018-11-09] MEDS: JEVITY 1.2 CAL 1,000 ML BOTTLE GT PRN (10:05)
[2018-11-09 11:33] LABS: CALCIUM, SERUM 8.5 mg/dL (8.5-10.1); CARBON DIOXIDE 25 mmol/L (21-32); CHLORIDE 104 mmol/L (98-107); CREATININE 1.2 mg/dL (0.6-1.3); GLUCOSE 117 mg/dL (74-106); POTASSIUM 3.6 mmol/L (3.5-5.1); SODIUM SERUM 138 mmol/L (136-145); UREA NITROGEN, BLOOD 15 mg/dL (7-18)
[2018-11-09] MEDS ORDERED: JEVITY 1.2 CAL 1,000 ML BOTTLE GT PRN (12:08)
[2018-11-09] MEDS: IV NS 0.9% 1,000 ML IV PRN (13:05)
[2018-11-09 14:00] VITALS: BP 124/69
--- NOTE | 2018-11-09 14:15 | NUR ---
MS DESKTOP ANALYST NOTES PT DISCHARGED BACK TO [facility]. PT A/O X1. AWAKE. PT TOLERATING RA, WITH NO ACUTE RESPIRATORY DISTRESS. PT ON GT FEEDING AT JEVITY 1.2 AT 65ML/HR. GT RESIDUAL 10ML WHEN ASPIRATED. PIV TO LEFT WRIST REMOVED, APPLIED DRESSING. NO PICTURES TAKEN FOR PT'S SKIN ISSUES, LAST PICTURES PLACED LAST NIGHT (NOT MORE THAN 24HOURS). PT DENIES ANY PAIN OR DISCOMFORT. RN TRIED TO CALL FAMILY/SON/JOANA, NO RESPONSE. REPORT GIVEN TO [facility] BY LUZ MARINA/ELKIN. PT KEPT CLEAN AND DRY. ALL NEEDS AND CARE PROVIDED. VITAL SIGNS STABLE BEFORE HE LEFT THE UNIT. PT LEFT THE UNIT AT 1410. HOSPITALIST/DOOR MAKER/AP AWARE AND CN/ELKIN AWARE OF DISCHARGE.
== END 2018-11-09 14:25 | DRG 720 ==
LOC: ER 08:43 → TELE-TD 11:35 → MEDSG1 11-05 09:41 → TELE1 11-07 20:43 → TELE-TD 11-07 22:55 → MEDSG1 11-08 17:25 → UNDODISIN 11-08 18:57
PROVIDERS: ADMIT Hospitalist; ATTEND Hospitalist
DX: A41.9 Sepsis, unspecified organism (principal); J96.21 Acute and chronic respiratory failure with hypoxia; N17.0 Acute kidney failure with tubular necrosis; I11.0 Hypertensive heart disease with heart failure; G93.41 Metabolic encephalopathy; J18.9 Pneumonia, unspecified organism; J44.0 Chronic obstructive pulmonary disease with (acute) lower respiratory infection; I50.9 Heart failure, unspecified; Z93.1 Gastrostomy status; E44.1 Mild protein-calorie malnutrition; E78.5 Hyperlipidemia, unspecified; K52.9 Noninfective gastroenteritis and colitis, unspecified; F03.90 Unspecified dementia, unspecified severity, without behavioral disturbance, psychotic disturbance, mood disturbance, and anxiety; R65.20 Severe sepsis without septic shock; D72.829 Elevated white blood cell count, unspecified; K56.41 Fecal impaction; D64.9 Anemia, unspecified; Z68.22 Body mass index [BMI] 22.0-22.9, adult; G40.909 Epilepsy, unspecified, not intractable, without status epilepticus; N40.0 Benign prostatic hyperplasia without lower urinary tract symptoms; D17.1 Benign lipomatous neoplasm of skin and subcutaneous tissue of trunk; E87.6 Hypokalemia; E83.39 Other disorders of phosphorus metabolism; E03.9 Hypothyroidism, unspecified; Z22.322 Carrier or suspected carrier of Methicillin resistant Staphylococcus aureus; E86.9 Volume depletion, unspecified
CPT/HCPCS: 36415; 71045-TC; 74018; 80048-TC; 80053-TC; 80061-TC; 80076-TC; 80202-TC; 81000-TC; 82272-TC; 82728-TC; 83540-TC; 83605-TC; 83735-TC; 83880; 84100-TC; 84439-TC; 84443-TC; 84484-TC; 85025-TC; 85730-TC; 87040-TC; 87081-TC; 87086-TC; 87400; 94760-TC; 94799-TC; 97530-TC; A4349; G0378; J1953; J2543; J3370; J7030; J7040; J7060